=== PATIENT | male | born 1980 | race Caucasian/White ===

== ENCOUNTER 2024-11-26 04:36 | Emergency (ER) | payer OTHER, SELFPAY ==
[2024-11-26] VITALS (7 sets, daily range): BP systolic 101–125; BP diastolic 65–86; BMI 31.2
--- NOTE | 2024-11-26 04:41 | ED.GENMED ---
History of Present Illness
<Kulwant Love, DO - Last Filed: 11/28/24 02:16>
General
Chief Complaint: Chest Pain
Source: patient and ambulance crew
Exam Limitations: none
Time Seen by Provider: 11/26/24 04:41
Nursing documentation reviewed up to this point in time: agreed with
History of Present Illness
History of Present Illness:
Pleasant 44-year-old male presents the emergency department with substernal chest pain that began this evening. He states he has been having GERD like symptoms for much of the day but tonight the pain worsened and awakened him from sleep. Patient
called 911 and came into the emergency department. And route to the hospital, he received aspirin and nitroglycerin which significantly reduced his pain. Patient is a smoker. He denies previous cardiac history but has been evaluated by a
pavilion cutter in the past. Patient states that his pain awakened him from sleep around 3:30 AM.
Vital signs are stable. Patient not hypoxic
Nursing note reviewed. I agree with nursing documentation up to this point in time.
Home Meds and allergies reviewed.
NUMBER AND COMPLEXITY OF PROBLEMS ADDRESSED AT THE ENCOUNTER
� Chronic conditions affecting care: None
� Acute Exacerbation and/or Progression of Chronic Illness: Not
� Differential Diagnosis includes: ACS, GERD, musculoskeletal
AMOUNT AND/OR COMPLEXITY OF DATA TO BE REVIEWED AND ANALYZED
I performed an independent evaluation of the following and my interpretation is:
EKG: Normal sinus rhythm rate of 63 with normal intervals, normal axis ischemia present. When compared with previous EKG, no significant changes found
Pulse Ox: Not Hypoxic
Retail Wireless Associate: Sinus Rhythm
CT:
X-rays: Negative chest x-ray reviewed by myself.
Ultrasound:
Laboratory Studies: First troponin negative
Other:
Review of other/old records: Previous EKG
Clinical information was obtained by an independent historian:
Prescriptions/Medications Considered but not given:
Further testing considered but not performed:
RISK OF COMPLICATIONS AND/OR MORBIDITY OR MORTALITY OF PATIENT MANAGEMENT
Social determinants of health affecting care: Good Social Support
Discussion with other providers:
Escalation of care including admission/observation vs risk of discharge considered: After being observed in the emergency department, patient is stable for discharge.
CRITICAL CARE NOTE: Not applicable
Total Time (exclusive of procedures):
Update:
Past History
<Kulwant Love DO - Last Filed: 11/28/24 02:16>
Past History
ED Past Medical History: Asthma, Psychiatric (Anxiety) and Other (Migraine headaches)
Social History
Tobacco: Smoker
Alcohol: Occasional
Drug: None
Living: alone
Employment: Employed
Family History
Family History: Hypertension
Phy Exam
<Kulwant Love DO - Last Filed: 11/28/24 02:16>
General Physical Exam
General Presentation: well appearing and no apparent distress
General Skin: warm and dry
General Habitus: normal
General Mental: alert
General Hydration: appears well hydrated
ENT Exam
ENT Exam: EOMI, pharynx normal, neck supple and normocephalic
Eye Exam
Eye Exam: PERRL, cornea clear and conjunctiva normal
Cardiovascular Exam
Cardiovascular Exam: regular rate/rhythm, no edema, no murmur and normal peripheral pulses
Pulmonary Exam
Pulmonary Exam: lungs clear, no respiratory distress, no rales, no crackles, no rhonchi, no stridor, no wheezing and no cough
Gastrointestinal Exam
Gastrointestinal Exam: normal bowel sounds, non tender, soft, no organomegaly, no pulsatile mass and non distended
Neurological Exam
Neurological Exam: alert, oriented x3, no motor deficits and speech normal
Musculoskeletal Exam
Musculoskeletal Exam: full ROM and no edema
Skin Exam
Skin Exam: normal color, warm/dry, no rash and no petechia
Psychiatric Exam
Psychiatric Exam: normal mood/affect
Scores
<Kulwant Love, DO - Last Filed: 11/28/24 02:16>
Heart Score for Chest Pain Patients
History: Moderately Suspicious
ECG: Normal
Age: </= 45 years
Risk Factors: 1 or 2 Risk Factors
Troponin: </= Normal Limit
Heart Score for Chest Pain Patients: 2
Heart Score Risk: 2.5% MACE over next 6 weeks
<Seamus Deras, DO - Last Filed: 11/26/24 12:02>
Heart Score for Chest Pain Patients
STEMI patient?: No
Course
<Kulwant Love, DO - Last Filed: 11/28/24 02:16>
Orders/Labs/Results
Orders:
Orders
11/26/24 04:38
Electrocardiogram (*1) Urgent
Reason for Study: Chest Pain
11/26/24 04:39
EKG- Treatment ONCE
11/26/24 04:43
CR Chest - 2 Views Urgent
Comment:
Reason For Exam: cp
11/26/24 04:48
Complete Blood Count/With Diff Urgent
Comprehensive Metabolic Panel Urgent
NT-proBNP Urgent
PTT Urgent
Prothrombin Time Urgent
TSH Urgent
Troponin I Urgent
11/26/24 05:55
EKG- Treatment ONCE
11/26/24 09:30
Electrocardiogram (*1) Urgent
Reason for Study: Chest Pain
11/26/24 10:34
Troponin I Urgent
Abnormal Lab Results
11/26/24
04:48
Absolute Lymphs (auto) 3.8 H 10^3/uL
(1.2-3.4)
Absolute Monos (auto) 0.9 H 10^3/uL
(0.1-0.6)
Monocytes % 9.6 H %
(1.7-9.3)
APTT 22.9 L Sec
(23.4-35.0)
Glucose 108 H mg/dl
(70-99)
Total Bilirubin 0.1 L mg/dl
(0.2-1.3)
ALT 65 H U/L
(0-50)
11/26/24 04:48
11/26/24 04:48
Vital Signs
Initial and Last Documented VS:
Initial Vital Signs
Pulse Resp
68 16
11/26/24 04:39 11/26/24 04:39
Last Documented Vital Signs
Temp Pulse Resp BP Pulse Ox
98 F 63 12 115/77 95
11/26/24 11:11 11/26/24 11:30 11/26/24 11:30 11/26/24 11:00 11/26/24 11:30
<Seamus Deras, DO - Last Filed: 11/26/24 12:02>
Orders/Labs/Results
Orders:
Orders
11/26/24 04:38
Electrocardiogram (*1) Urgent
Reason for Study: Chest Pain
11/26/24 04:39
EKG- Treatment ONCE
11/26/24 04:43
CR Chest - 2 Views Urgent
Comment:
Reason For Exam: cp
11/26/24 04:48
Complete Blood Count/With Diff Urgent
Comprehensive Metabolic Panel Urgent
NT-proBNP Urgent
PTT Urgent
Prothrombin Time Urgent
TSH Urgent
Troponin I Urgent
11/26/24 05:55
EKG- Treatment ONCE
11/26/24 09:30
Electrocardiogram (*1) Urgent
Reason for Study: Chest Pain
11/26/24 10:34
Troponin I Urgent
Abnormal Lab Results
11/26/24
04:48
Absolute Lymphs (auto) 3.8 H 10^3/uL
(1.2-3.4)
Absolute Monos (auto) 0.9 H 10^3/uL
(0.1-0.6)
Monocytes % 9.6 H %
(1.7-9.3)
APTT 22.9 L Sec
(23.4-35.0)
Glucose 108 H mg/dl
(70-99)
Total Bilirubin 0.1 L mg/dl
(0.2-1.3)
ALT 65 H U/L
(0-50)
11/26/24 04:48
11/26/24 04:48
Vital Signs
Initial and Last Documented VS:
Initial Vital Signs
Pulse Resp
68 16
11/26/24 04:39 11/26/24 04:39
Last Documented Vital Signs
Temp Pulse Resp BP Pulse Ox
98 F 63 12 115/77 95
11/26/24 11:11 11/26/24 11:30 11/26/24 11:30 11/26/24 11:00 11/26/24 11:30
<Kulwant Love, DO - Last Filed: 11/28/24 02:16>
*EKG
Interpreted by ED Provider?: Yes
EKG Intrepretation Date: 11/26/24
Comparison EKG: no changes (05/05/23)
Heart Rate: 63
Rate: normal
Rhythm: sinus
[place]: normal axis
Interval: normal interval
QRS Pattern: normal QRS
Ischemia: no ischemia
*[employer] Associate Interpretation
Rate: normal
Interpretation: normal
Heart Rate: 66
Rhythm: sinus
*Critical Care Note
Total Time (30-74mins, 75-104mins- exclusive of procedures): Not Applicable
<Kulwatn Love, DO - Last Filed: 11/28/24 02:16>
Update Note
Update Note:
Patient resting chest pain-free. Troponin scheduled for 9:30 AM.
<Seamus Deras, DO - Last Filed: 11/26/24 12:02>
Update Note
Update Note:
I evaluated patient at bedside. The patient has had 2 normal troponins. Repeat EKG unremarkable. To follow-up with pavilion cutter as an outpatient. No further chest pain in the ED at time of discharge.
ED Attending Note
<Kulwant Love, DO - Last Filed: 11/28/24 02:16>
-
Portions of this chart may have been created with voice recognition software.� Occasional wrong word or��sound alike� substitutions may have occurred due to the inherent limitations of voice recognition software.
Discharge Plan
Departure
Patient Disposition: Home (Routine Discharge)
Date of Disposition: 11/26/24
Time of Disposition: 12:01
Patient with high blood pressure during this ER visit?: Yes
Condition: Good
Discharge Problem:
Chest pain
Instructions: Chest Pain CBC Follow Up, BLOOD PRESSURE
Prescriptions:
No Action
escitalopram oxalate [Lexapro] 10 mg Tablet
10 mg PO DAILY
pantoprazole [Protonix] 40 mg tablet,delayed release (DR/EC)
40 mg PO DAILY Qty: 30 0RF
Referrals:
[facility] [Provider Group]
UNKNOWN - PT DOES,NOT KNOW [Family Provider] -
Activity Restrictions/Additional Instructions:
It was a pleasure meeting you and taking part in your care. We hope for your continued healing and wellness.
Please read discharge instructions in their entirety. However, they are for general education and may not describe your exact diagnosis at discharge. Information on your ER visit and medical conditions were discussed with you along with appropriate
follow up information...
If indicated, please take your medications as instructed and indicated on discharge paperwork.
Please schedule a follow up appointment as directed. Call to schedule an appointment
Please return to the emergency department with ANY change in, persisting, or worsening of symptoms. If any of your symptoms do not improve, or persist, or become more severe within 6-12 hours, please return to the emergency department for further
care.
Please return to the emergency department if you develop a headache, neck pain/stiffness, fever greater than 100.4F, chest pain, shortness of breath, persistent nausea, vomiting, slurred speech, difficulty walking, numbness/tingling, weakness, signs
of infection or any other symptoms that are worrisome to you.
If you have any questions or concerns please do not hesitate to call the Hospital at or E-mail me directly at [email or web address]
Interventions
Interventions:
*Risk Screen - Suicide Last Done: 11/26/24 04:40
*General Assessment Last Done: 11/26/24 04:40
*Neglect/Abuse Screening Last Done: 11/26/24 04:40
ED- Fall Risk Assessment Last Done: 11/26/24 06:17
*ED COVID-19 Vaccine History Last Done: 11/26/24 12:24
*Nursing Disposition Last Done: 11/26/24 12:24
ED- Cardiac Assessment Last Done: 11/26/24 06:17
Discharge Date and Time
Discharge Date/Time: 11/26/24 12:25
Print Language: UPPER SORBIAN
[2024-11-26 05:06] LABS: % Basophils 0.9 % (0-2); % Eosinophils 5.2 % (0-6); % Immature Granulocytes 0.3 % (0-0.5); % Lymphocytes 40.7 % (20.5-51.1); % Monocytes 9.6 % (1.7-9.3); % Neutrophils 43.3 % (42.2-75.2); Absolute Basophils 0.1 10^3/uL (0-0.2); Absolute Eosinophils 0.5 10^3/uL (0-0.7); Absolute Lymphocytes 3.8 10^3/uL (1.2-3.4); Absolute Monocytes 0.9 10^3/uL (0.1-0.6); Hematocrit 43.6 % (39.0-52.0); Hemoglobin 14.7 g/dL (13.0-18.0); Mean Corp Hgb Conc. 33.7 g/dL (33.0-37.0); Mean Corpuscular Hgb 30.8 pg (27.0-31.0); Mean Corpuscular Volume 91.2 fL (80.0-94.0); Mean Platelet Volume 10.4 fL (7.4-10.4); Nucleated Red Blood Cells % 0 % (-); Platelet Count 304 10^3/uL (130-400); Red Blood Cell Count 4.78 10^6/uL (4.70-6.10); Red Cell Dist. Width 12.3 % (11.5-14.5); White Blood Cell Count 9.2 10^3/uL (4.8-10.8)
[2024-11-26 05:20] LABS: ALT (SGPT) 65 U/L (0-50); AST (SGOT) 42 U/L (17-59); Albumin 4.2 g/dl (3.5-5.0); Alkaline Phosphatase 83 U/L (38-126); Blood Urea Nitrogen 17 mg/dl (9-20); Calcium 9.3 mg/dl (8.4-10.2); Carbon Dioxide 28 mmol/L (22-30); Chloride 103 mmol/L (98-107); Estimated Creatinine Clearance 115 ml/min; Glucose 108 mg/dl (70-99); Potassium 4.3 mmol/L (3.5-5.1); Sodium 139 mmol/L (135-145); Total Bilirubin 0.1 mg/dl (0.2-1.3); Total Protein 6.8 g/dl (6.3-8.2); eGFR > 60.00
[2024-11-26 05:29] LABS: PT 11.5 Sec (11.4-14.6)
[2024-11-26 05:30] LABS: APTT 22.9 Sec (23.4-35.0); NT-proBNP < 20.0 pg/ml; Troponin I < 0.012 ng/ml
[2024-11-26 06:04] LABS: TSH 3.01 uIU/ml (0.47-4.68)
[2024-11-26 11:11] LABS: Troponin I < 0.012 ng/ml
== END 2024-11-26 12:25 | disposition home or self-care (01) ==
LOC: EMR 04:36
PROVIDERS: EMERGENCY PHYSICIAN Student in an Organized Health Care Education/Training Program
DX: R07.2 Precordial pain (principal); J45.909 Unspecified asthma, uncomplicated; F17.200 Nicotine dependence, unspecified, uncomplicated
CPT/HCPCS: 99285; 71046; 80053; 83880; 84443; 84484; 85025; 85610; 85730; 93005

== ENCOUNTER → 2024-12-11 14:05 | Outpatient (REF) | payer OTHER, SELFPAY | LOC: RCS 14:05 | PROVIDERS: ATTENDING PHYSICIAN Internal Medicine; FAMILY PHYSICIAN Internal Medicine | DX: R07.9 Chest pain, unspecified (principal); I10 Essential (primary) hypertension; E66.811 Obesity, class 1; F17.210 Nicotine dependence, cigarettes, uncomplicated | CPT/HCPCS: 93017; 93350 ==

== ENCOUNTER 2025-04-16 23:01 | Observation (INO) | payer OTHER, SELFPAY ==
[2025-04-16 19:00] VITALS: BP 130/83
[2025-04-16 19:26] LABS: % Basophils 0.2 % (0-2); % Eosinophils 3.3 % (0-6); % Immature Granulocytes 0.4 % (0-0.5); % Lymphocytes 9.8 % (20.5-51.1); % Neutrophils 84.3 % (42.2-75.2); Absolute Eosinophils 0.3 10^3/uL (0-0.7); Absolute Lymphocytes 0.8 10^3/uL (1.2-3.4); Absolute Monocytes 0.2 10^3/uL (0.1-0.6); Absolute Neutrophils 7.2 10^3/uL (1.4-6.5); Hematocrit 45.7 % (39.0-52.0); Hemoglobin 16.1 g/dL (13.0-18.0); Mean Corp Hgb Conc. 35.2 g/dL (33.0-37.0); Mean Corpuscular Hgb 31.2 pg (27.0-31.0); Mean Corpuscular Volume 88.6 fL (80.0-94.0); Mean Platelet Volume 10.1 fL (7.4-10.4); Nucleated Red Blood Cells % 0 % (-); Platelet Count 229 10^3/uL (130-400); Red Blood Cell Count 5.16 10^6/uL (4.70-6.10); Red Cell Dist. Width 12.1 % (11.5-14.5); White Blood Cell Count 8.5 10^3/uL (4.8-10.8)
[2025-04-16 19:38] LABS: Lactic Acid 1.4 mmol/L (0.7-2.0)
[2025-04-16 19:40] LABS: ALT (SGPT) 28 U/L (0-50); AST (SGOT) 23 U/L (17-59); Albumin 4.5 g/dl (3.5-5.0); Alkaline Phosphatase 92 U/L (38-126); Blood Urea Nitrogen 13 mg/dl (9-20); Calcium 9.1 mg/dl (8.4-10.2); Carbon Dioxide 22 mmol/L (22-30); Chloride 110 mmol/L (98-107); Glucose 100 mg/dl (70-99); Potassium 4.3 mmol/L (3.5-5.1); Sodium 141 mmol/L (135-145); Total Bilirubin 0.7 mg/dl (0.2-1.3); Total Protein 7.3 g/dl (6.3-8.2); eGFR > 60.00
[2025-04-16 20:38] VITALS: BP 138/77
[2025-04-16] MEDS: NSS 1000 IV (20:43)
[2025-04-16 20:46] LABS: Erythrocyte Sed Rate 10 mm/hour (0-20)
[2025-04-16 20:56] VITALS: BMI 28.8
[2025-04-16 20:59] LABS: Urine Albumin Negative (Neg - Trace); Urine Bilirubin Negative (Negative); Urine Character Clear (Clear); Urine Color Yellow; Urine Glucose Negative (Negative); Urine Ketone 1+ (Negative); Urine Leukocyte Negative (Negative); Urine Nitrite Negative (Negative); Urine Occult Blood 1+ (Negative); Urine Urobilinogen Negative (Neg - 1+); Urine pH 6.5 (5.0-9.0)
[2025-04-16 21:00] VITALS: BP 129/62
[2025-04-16 21:14] LABS: Urine Bacteria Few (Negative); Urine White Cell 0-2 /HPF (0-5)
[2025-04-16 21:18] LABS: COVID-19 Antigen Negative (Negative)
--- NOTE | 2025-04-16 21:19 | ED.GENMED ---
History of Present Illness
General
Chief Complaint: Skin Problem
Source: patient
Exam Limitations: none
Time Seen by Provider: 04/16/25 20:09
History of Present Illness
History of Present Illness:
Patient started over a week ago with a small abscess to the right axilla. It was drained a week ago. Ended up being MSSA. He started Bactrim at that time. A few days later he started developing myalgias aches almost flulike symptoms. Also
developed some swollen lymph nodes in other painful nodules under his neck and axilla and groin. Was seen at [facility] last night with negative labs and sent home. Symptoms are progressed today where he feels like he is so achy and weak he
cannot ambulate.
Past History
Past History
ED Past Medical History: Asthma, Psychiatric (Anxiety) and Other (Migraine headaches)
Social History
Tobacco: Smoker
Alcohol: Occasional
Drug: None
Living: alone
Employment: Employed
Family History
Family History: Hypertension
Review of Systems
Review of Systems
All Other Systems: Not applicable
Constitutional: Reports fever and chills
Respiratory: Reports no symptoms
ABD/GI: Reports no symptoms
Phy Exam
Physical Exam
Physical Exam:
GENERAL: Alert and oriented in no apparent distress
EYE: Orbits normal.
NECK: Supple, no significant adenopathy.
ENT: Pharynx without erythema
CARDIAC: Regular rate and rhythm without any obvious murmurs.
LUNGS: Clear breath sounds,normal
ABDOMEN: Soft, without focal tenderness or distention
NEUROLOGICAL: Alert and oriented , grossly non-focal
SKIN: Warm and dry, diffuse erythema to the skin with some blotchy erythema to the upper arms chest and abdomen. No petechia or purpura. Well-healing abscess to the right axilla. Nonspecific adenopathy submandibular and axillary and groin.
MUSCULOSKELETAL: No edema,no deformity.Good color
PSYCH: Normal and appropriate interaction.
Course
Orders/Labs/Results
Orders:
Orders
04/16/25 19:19
C-Reactive Protein Urgent
Comment: ADD ON
Complete Blood Count/With Diff Urgent
Comprehensive Metabolic Panel Urgent
Erythrocyte Sed Rate Urgent
Comment: ADD ON
Lactate Level [Lactic Acid] Q4H
Blood Culture Urgent
AKIKO Source: Blood/Venous
Specimen Description:
04/16/25 20:27
Add On- LAB Urgent
Tests Added?: esr,crp
0.9% Sodium Chloride 1000 ml [Nss] 1,000 ml IV BOLUS
CXR2 [CR Chest - 2 Views ] Urgent
Comment:
Reason For Exam: Subjective fever/myalgias
04/16/25 20:36
COVID-19 Antigen Urgent
Source: Nasal Swab
Influenza A+B Rapid Molecular Urgent
AKIKO Source: Nasal Swab
Specimen Description:
04/16/25 20:46
Urinalysis Reflex To Culture Urgent
Date Specimen was Collected: 04/16/25
Time Specimen was Collected: 20:34
Urine Microscopic Reflex Cult Urgent
Abnormal Lab Results
04/16/25 04/16/25
19:19 20:46
MCH 31.2 H pg
(27.0-31.0)
Absolute Neuts (auto) 7.2 H 10^3/uL
(1.4-6.5)
Absolute Lymphs (auto) 0.8 L 10^3/uL
(1.2-3.4)
Neutrophils % 84.3 H %
(42.2-75.2)
Lymphocytes % 9.8 L %
(20.5-51.1)
Chloride 110 H mmol/L
(98-107)
Glucose 100 H mg/dl
(70-99)
C-Reactive Protein 21.60 H mg/L
(0.0-10.00)
Urine Ketones 1+ A
(Negative)
Ur Occult Blood Reflex 1+ A
(Negative)
Urine RBC 3-6 A /HPF
(0-2)
Urine Bacteria (Reflex) Few A
(Negative)
04/16/25 19:19
04/16/25 19:19
Vital Signs
Initial and Last Documented VS:
Initial Vital Signs
Temp Pulse Resp BP Pulse Ox
98.8 F 103 20 130/83 97
04/16/25 19:00 04/16/25 19:00 04/16/25 19:00 04/16/25 19:00 04/16/25 19:00
Last Documented Vital Signs
Temp Pulse Resp BP Pulse Ox
98.8 F 103 20 138/77 96
04/16/25 19:00 04/16/25 19:00 04/16/25 19:00 04/16/25 20:38 04/16/25 20:48
*Radiology
Radiology exam reviewed: preliminary read by ED provider (Negative x-ray)
*Pulse Oximetry
Patient hypoxic: no
*Critical Care Note
Total Time (30-74mins, 75-104mins- exclusive of procedures): Not Applicable
Update Note
Update Note:
I am relatively suspicious of a drug reaction rash. Possible other infectious issue. Given patient's progression of symptoms over the last 3 to 4 days new rash warrants inpatient further evaluation
ED Attending Note
-
Portions of this chart may have been created with voice recognition software.� Occasional wrong word or��sound alike� substitutions may have occurred due to the inherent limitations of voice recognition software.
Discharge Plan
Departure
Patient Disposition: Admit
Date of Disposition: 04/16/25
Time of Disposition: 22:16
Presentation/result/management discussed w/ accepting MD/DO: Hospitalist
Discharge Problem:
Possible drug reaction, Versus undiagnosed infectious issue, Recent right axillary abscess
Prescriptions:
No Action
escitalopram oxalate [Lexapro] 10 mg Tablet
10 mg PO DAILY
pantoprazole [Protonix] 40 mg tablet,delayed release (DR/EC)
40 mg PO DAILY Qty: 30 0RF
Referrals:
Radhames Hardwick MD [Family Provider] -
Interventions
Interventions:
*Risk Screen - Suicide Last Done: 04/16/25 20:00
*General Assessment Last Done: 04/16/25 20:00
*Neglect/Abuse Screening Last Done: 04/16/25 20:00
*ED- Fall Risk Assessment Last Done: 04/16/25 20:00
*ED COVID-19 Vaccine History Last Done: 04/16/25 20:00
ED-Skin Assessment Last Done: 04/16/25 21:04
Discharge Date and Time
Print Language: ICELANDIC
--- NOTE | 2025-04-16 22:19 | HPS.HSE ---
Family Physician
-
Family Physician: Radhames Hardwick
Chief Complaint
-
Rash
History of Present Illness
This is a 44-year-old with past medical history of GERD, anxiety/depression who presents to the emergency department with generalized maculopapular rash that started approximately today.
Patient was seen in urgent care approximately 1 week ago on . At the time he had right peaked swelling, erythema and some induration. He had lancing I&D and was placed on Bactrim. Patient reported that he took 5 days of Bactrim. In the
interim he says he developed intermittent chills, occasional rigors, generalized aches and pains and returned to the emergency department at [facility] yesterday with the symptoms. He denied having any fevers. He denies noticing any rash.
While at [facility] the patient was given cephalexin and blood cultures were done. Patient reported that immediately after receiving the cephalexin developed a rash and it was thought to be secondary to the cephalexin. He was given Benadryl and
this rash did improve and he was discharged to home. He had a same time noticed a nodule in his right cervical chain, right axillary and right inguinal region. These were nonpainful nodules. Today he reported that approximately 12 hours after the
cephalexin he did take a dose of his Bactrim and then developed a rash by this evening which prompted him to come to the emergency department.
In the emergency department he was afebrile with a temp of 98.8, blood pressure was 138/77 with a pulse of 103 and he was satting 100% on room air.
CBC was completely unremarkable. Electrolytes BUN/creatinine were in the normal range. Chest x-ray was clear. He had additional testing with a negative urinalysis. COVID was negative, flu test was negative. ESR was 10. CRP was 20.
Medical History
Past Medical History
Past Medical History: Reports GERD and Psychiatric
Past Surgical History: Reports Tonsilectomy
Social History
Tobacco: Smoker
Alcohol: Occasional
Drug: None
Personal:
Living: With Family
Employment: Employed
Family History
Family History: Not pertinent
Allergies / Home Medications
Allergies reflects when Allergies were last updated in [employer].
Home Medications with original date entered in [employer]
Allergy/Medication List:
Allergies
Allergy/AdvReac Type Severity Reaction Status Date / Time
belladonna alkaloids Allergy Unknown Unknown Verified 04/16/25 19:04
cephalexin [From Keflex] Allergy Unknown Rash Verified 04/16/25 19:04
codeine Allergy Unknown Unknown Verified 04/16/25 19:04
Home Medications
escitalopram oxalate 10 mg tablet (Lexapro) 10 mg PO DAILY 05/05/23
pantoprazole 40 mg tablet,delayed release (Protonix) 40 mg PO DAILY #30 tabs 05/06/23
Losartan 50 mg tablet, 50 mg p.o. daily
Review of Systems
-
History Source: Patient
Constitutional: Reports Chills
EENT: Reports No Symptoms
Respiratory: Reports No Symptoms
Cardiac: Reports No Symptoms
Abdomen/GI: Reports No Symptoms
: Reports No Symptoms
Musculoskeletal: Reports Joint Pain and Muscle Pain
Skin: Reports Itching and Rash
Neurological: Reports No Symptoms
Endocrine: Reports No Symptoms
Hematologic/Lymphatic: Reports No Symptoms
Psych: Reports No Symptoms
Physical Exam
Vital Signs
Vital Signs
Temp Pulse Resp BP Pulse Ox
98.8 F 103 20 129/62 96
04/16/25 19:00 04/16/25 19:00 04/16/25 19:00 04/16/25 21:00 04/16/25 21:30
Physical Exam
General: Well Developed, Well Nourished and No Apparent Distress
HEENT: NormoCephalic, Moist mucous membranes and Atraumatic
Respiratory: Clear
Cardiac: S1/S2 and Regular Rhythm; No Murmur or Rub
GI: Soft, Non Tender, Non Distended and Normal Bowel Sounds; No Organomegaly
Rectal: Deferred by Provider
Musculoskeletal: No Clubbing, No Cyanosis and No Edema
Skin: Rash (Maculopapular rash throughout the trunk and the lower extremities bilaterally, right patient status post I&D without any swelling induration or tenderness. No erythema.)
Neuro: AO x 3 and Nonfocal/grossly intact
Hematologic/Lymphatic: Lymphadenopathy (Right posterior cervical lymphadenopathy noted)
Laboratory Results
-
04/16/25 19:19
04/16/25 19:19
Laboratory Results
Lactic Acid 1.4 mmol/L (0.7-2.0) 04/16/25 19:19
Total Bilirubin 0.7 mg/dl (0.2-1.3) 04/16/25 19:19
AST 23 U/L (17-59) 04/16/25 19:19
ALT 28 U/L (0-50) 04/16/25 19:19
Alkaline Phosphatase 92 U/L (38-126) 04/16/25 19:19
Data Reviewed
-
Diagnostic Radiology: Image Personally Visualized and interpreted and Report Reviewed by me
Lab Data: Labs Reviewed by me
Old Records: Reviewed
Impression/Plan
-
IMPRESSION:
44 y.o with likely episode of right axillary folliculitis/furuncule s/p I&D 1 week ago with wound cultures growing MSSA s/p at least 5 days of abx (skipped 2 days) and last dose this am. The boil area is without drainage, induration, tenderness or
erythema. He developed a generalized maculopapular rash with associated serum-sickness symptoms suggestive of a drug eruption. Possibly from initiation of cephalexin yesterday (initial response to antihistamine noted) but can also be secondary to
ongoing bactrim. Negative w/u in ED. Blood cultures done yesterday at [facility] (less than 24 hours). No scaling or skin peeling. No respiratory symptoms.
PLAN:
1. Rash - Drug eruption suspected.
- admit to med/surg observation
- benadryl 25mg po q 8 and 25mg IV a6 prn pruritus
- unclear if rash from bactrim or cephalexin at this point so will hold both abx
- no signs of active infection so hold any new abx
- follow up blood cultures drawn at [facility] yesterday evening
- repeat blood cx and start vancomycin if spike fever
- lymphadenopathy is non-tender, normal CBC. Suspect reactive. Can follow up after resolution of rash.
DVT PPX - SCDs
Code Status - Full Code
[2025-04-16] MEDS: BENADRYL 25 MG PO (22:41)
[2025-04-16] MEDS: FLUSH (NSS) 1 FLUSH IV (22:41)
[2025-04-16 22:43] VITALS: BP 156/75
[2025-04-16 23:00] VITALS: BP 144/64
[2025-04-16 23:44] VITALS: BP 125/78; BMI 28.9
[2025-04-17] MEDS: NSS 1000 IV (00:10)
--- NOTE | 2025-04-17 07:10 | W.PN.HOSP.TC ---
Addendum entered and electronically signed by Avril Osuna MD 04/17/25 12:06:
I saw and evaluated the patient independently. I reviewed the resident�s note and agree with findings and plan as documented by Dr. Gomez.
GENERAL: well developed, well nourished, male in no apparent distress
HEENT: NC/AT--posterior cervical LAD noted--nontender
HEART: regular rate and rhythm, +S1, +S2
LUNGS : clear to auscultation bilaterally
ABDOM: soft, nontender, nondistended, + bowel sounds
EXT: no cyanosis, clubbing, or edema
NEUROLOGIC: grossly intact
SKIN: no rash noted
Rash--suspect allergic drug reaction likely to Bactrim but unclear if cephalexin contributed--will add Bactrim to allergy list--cont benadryl and pepcid--blood cultures were drawn at [facility] and here- lymphadenopathy is non-tender, normal CBC.
Suspect reactive. Can follow up after resolution of rash.
recent MSSA arm/axilla abscess I&D at urgent care--no need for further antibiotics at this point
DVT PPX - SCDs
Code Status - Full Code
Original Note:
Today's Communication/Plan
-
dc today
Assessment / Plan
Assessment / Plan
Impression:
44yo M pmh GERD anxiety/depression presented to [facility] ED on 04/16 for a skin problem. Pt had a small abscess in R axilla that was drained 1 week ago at an urgent care, started on bactrim, MSSA positive. He was seen at [facility] the night prior w
negative labs and was started on cephalexin. Immediately after taking cephalexin, he developed a rash and was given benadryl and was sent home. Approximately 12 hrs after taking the cephalexin, he took bactrim and he developed a rash.
Plan:
Rash
- concern for drug eruption vs infection vs dermatitis
- benadryl
- unclear if rash is from cephalexin or bactrim - holding both abx
- no signs of active infection
- blood cx drawn at [facility]
- urinalysis neg for infection
- CXR: No evidence of active cardiopulmonary disease.
- repeat bcx pending
- start vancomycin if fever spikes
GERD
- cont ppi
Depression/anxiety
- cont escitalopram
Diet: regular
DVT ppx: SCDs
Code status: FULL CODE
Anticipated Discharge: Today
Subjective/Interval History
-
Date of Service: April 17, 2025
Pt is a 44yo M [facility] GERD anxiety/depression presented to [facility] ED on 04/16 for a skin problem. Pt had a small abscess in R axilla that was drained 1 week ago at an urgent care, started on bactrim, MSSA positive. Several days later he started to develop
myalgias, chills, rigors, and swollen lymph nodes. He was seen at [facility] the night prior w negative labs and was started on cephalexin. Immediately after taking cephalexin, he developed a rash and was given benadryl and was sent home. Pt
developed a nodule in his R cervical chain, R axillary, and R inguinal region. Approximately 12 hrs after taking the cephalexin, he developed a rash. ESR 10, CRP 20. WBC wnl.
Objective Data
-
Labs:
Laboratory Results
04/16/25
19:19
WBC 8.5
Hgb 16.1
Hct 45.7
Plt Count 229
Sodium 141
Potassium 4.3
Chloride 110 H
Carbon Dioxide 22
BUN 13
Creatinine 1.1
Glucose 100 H
Calcium 9.1
Total Bilirubin 0.7
AST 23
ALT 28
Alkaline Phosphatase 92
Vital Signs:
Vital Signs
Temp Pulse Resp BP Pulse Ox
99.7 F 98 18 125/78 98
05/22/25 23:44 04/16/25 23:44 04/16/25 23:44 04/16/25 23:44 04/16/25 23:44
Review of Systems
-
History Source: Patient
Constitutional: Reports No Symptoms
EENT: Reports No Symptoms Reported
Respiratory: Reports No Symptoms
Cardiac: Reports No Symptoms
Abdomen/GI: Reports No Symptoms
Musculoskeletal: Reports No Symptoms
Skin: Reports Rash
Neuro: Reports No Symptoms
Physical Exam
-
General: Well Developed, Well Nourished, No Apparent Distress and Comfortable
HEENT: Normocephalic, Atraumatic and Moist Mucous Membranes
Respiratory: Clear to Auscultation and Non Labored Respirations
Cardiac: Regular Rhythm and S1/S2
GI: Soft, Nontender, Nondistended and Normal Bowel Sounds
Musculoskeletal: No Clubbing, No Cyanosis and No Edema
Skin: Warm, Dry, Lesions and IV Access / Catheter Site
Neuro: Awake, Alert and Oriented
Psych: Calm
[2025-04-17] MEDS: PROTONIX 40 MG PO (07:30)
[2025-04-17] MEDS: BENADRYL 25 MG PO (07:30)
[2025-04-17] MEDS: LEXAPRO 10 MG PO (07:30)
[2025-04-17 07:44] VITALS: BP 114/63
--- NOTE | 2025-04-17 10:24 | W.DCSUMMARY ---
Addendum entered and electronically signed by Avril Osuna MD 04/17/25 12:08:
Read, reviewed, and agree. See same day progress note for additional details. Time spent coordinating care, DC planning, review of DC plan of care with resident, transition of care, review of records in EMR, med rec, consults, notes, d/w
consultants, nursing, family, and CM = 20 minutes
No rash noted this morning, no wheezing, no fevers, no body aches. [facility] blood cultures and blood cultures drawn here are all pending. Electing not to send patient on any further antibiotics as no signs of any residual or active/new
infection. He has been instructed to take Benadryl and Pepcid and follow-up with his primary care physician.
Original Note:
Discharge Summary
Discharge Data
Date of Admission: 04/16/25
Date of Discharge: 04/17/25
-
Pending Results: Yes
Additional Pending Results:
blood cultures
Hospital Course
Discharging Physician : Dr. Citlalli Gomez, Dr. Avril Osuna
Disposition : home
Primary care physician : Radhames Hardwick
Principal Discharge diagnosis : drug reaction rash
Chronic Discharge diagnosis : GERD, depression/anxiety
Hospital Course : 44yo M h GERD anxiety/depression presented to [facility] ED on 04/16 for a skin problem. Pt had a small abscess in R axilla that was drained 1 week ago at an urgent care, started on bactrim, MSSA positive. He was seen at [facility]
the night prior w negative labs and was started on cephalexin. Immediately after taking cephalexin, he developed a rash and was given benadryl and was sent home. Approximately 12 hrs after taking the cephalexin, he took bactrim and he developed a
rash. Took a total of 5 days of abx. Given benadryl in the ED. Admitted for observation. Pruritis and rash improved overnight. Pt hemodynamically stable and afebrile.
Important imaging findings :
CXR: No evidence of active cardiopulmonary disease.
Procedure findings : n/a
Discharge Plan
-
Patient Disposition: Home (Routine Discharge)
Discharge Diagnosis/Procedures: drug reaction rash
Condition: Fair
Diet: No restrictions
Activity: No restrictions
Driving Restrictions: As prior to admission
Bathing Restrictions: None
Instructions: Skin Rash (DC), Cellulitis and erysipelas (skin infections)
Referrals:
Radhames Hardwick MD [Family Provider] - in one week
Additional Discharge Medication Instructions: Please return to the ED if you develop streaky red lines
Prescriptions:
New
diphenhydramine HCl 25 mg Capsule
25 mg PO Q6HPRN PRN (Reason: itching) 7 Days Qty: 30 0RF
Continued
escitalopram oxalate [Lexapro] 10 mg Tablet
10 mg PO DAILY
pantoprazole [Protonix] 40 mg tablet,delayed release (DR/EC)
40 mg PO DAILY Qty: 30 0RF
losartan 50 mg Tablet
50 mg PO DAILY
Rx Instructions:
HS
Discharge Orders:
Discharge Patient (As Directed); Ordered 04/17/25
Ordered By: Citlalli Gomez
Discharge Date and Time
Print Language: CROATIAN
--- NOTE | 2025-04-17 12:10 | CM ---
Met with patient at bedside; initial assessment completed
Observation form explained; form signed @ [id number]
pharmacy verified: [facility] @ [facility]
Patient lives with ; multilevel home; no steps to enter; 12 steps to 2nd floor; railing on stairs; powder room 1st floor; 2nd floor bath has shower stall w/ seat
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
NO SNF or Home Health utilization history
Daughter will transport home
Plan: Discharge to home today; no needs
[2025-04-17 12:25] VITALS: BP 121/70
== END 2025-04-17 12:59 | disposition home or self-care (01) ==
LOC: 4 EAST ACU 23:01
PROVIDERS: Emergency Medicine; ADMITTING PHYSICIAN Internal Medicine; ATTENDING PHYSICIAN Internal Medicine; EMERGENCY PHYSICIAN Emergency Medicine; FAMILY PHYSICIAN Internal Medicine
DX: T50.905A Adverse effect of unspecified drugs, medicaments and biological substances, initial encounter (principal); R59.0 Localized enlarged lymph nodes; F17.200 Nicotine dependence, unspecified, uncomplicated; R21 Rash and other nonspecific skin eruption; K21.9 Gastro-esophageal reflux disease without esophagitis; F41.9 Anxiety disorder, unspecified; F32.A Depression, unspecified
CPT/HCPCS: 71046; 80053; 81003; 81015; 83605; 85025; 85652; 86140; 87040; 87502; 87811; 96360; 99284; G0378

== ENCOUNTER → 2025-04-28 15:44 | Outpatient (REF) | payer OTHER, SELFPAY | LOC: RCS 15:44 | PROVIDERS: ATTENDING PHYSICIAN Internal Medicine; FAMILY PHYSICIAN Internal Medicine | DX: I10 Essential (primary) hypertension (principal) | CPT/HCPCS: 93306 ==